=== PATIENT | male | born 1965 | race Caucasian/White ===

== ENCOUNTER 2017-01-20 15:43 | Emergency (ER) | payer BC, OTHER ==
[2017-01-20 16:24] VITALS: BP 157/94
--- NOTE | 2017-01-20 18:07 | RAD ---
Indication: Right foot pain 3 views of the right foot demonstrates degenerative changes of the first metatarsophalangeal joint. Inferior posterior calcaneal spur is noted. IMPRESSION: Degenerative changes of the first metatarsal phalangeal joint without evidence of fracture.
--- NOTE | 2017-01-20 18:11 | RAD ---
Indication: Right knee injury. 4 views of the right knee demonstrates no fracture. Degenerative changes of the patellofemoral joint is noted. IMPRESSION: Degenerative changes of the patellofemoral joint without evidence of fracture.
--- NOTE | 2017-01-20 20:03 | UC ---
Minor Trauma HPI - HPI Summary HPI Summary: SLIPPED ON ICE IN 01/09/17. HYPER EXTENDED KNEE ALSO PAIN IN RIGHT FOOT - History of Current Complaint Chief Complaint: UCLowerExtremity Stated Complaint: KNEE & FOOT PAIN,SWELLING Time Seen by Provider: 01/20/17 16:49 Hx Obtained From: Patient Onset/Duration: Sudden Onset, Lasting Weeks, Still Present Onset Of Pain: Post Accident Severity Initially: Moderate Severity Currently: Moderate Pain Intensity: 7 Pain Scale Used: 0-10 Numeric Mechanism Of Injury: Fall From A Standing Position Aggravating Factor(s): Ambulation, Movement, Weight Bearing Alleviating Factor(s): Compression, Elevation, Ice - Allergies/Home Medications Allergies/Adverse Reactions: Allergies Allergy/AdvReac Type Severity Reaction Status Date / Time Sulfa Drugs AdvReac GI Upset Verified 01/08/13 11:41 PMH/Surg Hx/FS Hx/Imm Hx Previously Healthy: Yes Endocrine History Of: Denies: Diabetes, Thyroid Disease Cardiovascular History Of: Reports: Hypertension Denies: Cardiac Disorders Respiratory History Of: Denies: COPD, Asthma GI/ History Of: Denies: Ulcer - Surgical History Surgical History: None Surgery Procedure, Year, and Place: appendix circa 1986 - Family History Known Family History: Negative: Other - NO JOINT LAXITY - Social History Occupation: Employed Full-time Lives: With Family Alcohol Use: Occasionally Substance Use Type: None Smoking Status (MU): Never Smoked Tobacco - Immunization History Most Recent Influenza Vaccination: denies Review of Systems Constitutional: Negative Skin: Negative Eyes: Negative ENT: Negative Respiratory: Negative Cardiovascular: Negative Gastrointestinal: Negative Genitourinary: Negative Motor: Negative Neurovascular: Negative Musculoskeletal: Arthralgia - RIGHT KNEE, Edema - RIGHT KNEE, Myalgia - RIGHT FOOT Neurological: Negative Psychological: Negative, Anxious All Other Systems Reviewed And Are Negative: Yes Physical Exam Triage Information Reviewed: Yes Appearance: Well-Appearing, No Pain Distress, Well-Nourished, Obese Vital Signs: Initial Vital Signs Temp 99.3 F 01/20/17 16:04 Pulse 95 01/20/17 16:04 Resp 18 01/20/17 16:04 BP 157/94 01/20/17 16:04 Pulse Ox 98 01/20/17 16:04 Vital Signs Reviewed: Yes Eye Exam: Normal ENT Exam: Normal ENT: Positive: Normal ENT inspection, Hearing grossly normal, Pharynx normal, TMs normal Dental Exam: Normal Neck exam: Normal Neck: Positive: Supple, Nontender Respiratory Exam: Normal Respiratory: Positive: Chest non-tender, Lungs clear, Normal breath sounds, No respiratory distress, No accessory muscle use Cardiovascular Exam: Normal Cardiovascular: Positive: RRR, No Murmur, Pulses Normal, Brisk Capillary Refill Abdominal Exam: Normal Abdomen Description: Positive: Nontender, No Organomegaly Musculoskeletal Exam: Normal Musculoskeletal: Positive: Strength Limited @ - RIGHT KNEE, ROM Limited @ - RIGHT KNEE, Edema @ - RIGHT KNEE Neurological Exam: Normal Psychological Exam: Normal Psychological: Positive: Normal Response To Family Skin Exam: Normal Minor Trauma Course/Dx - Differential Dx/Diagnosis Differential Diagnosis/HQI/PQRI: Sprain, Strain Provider Diagnoses: RIGHT KNEE SPRAIN. RIGHT FOOT SPRAIN Discharge - Discharge Plan Condition: Stable Disposition: HOME Patient Education Materials: Knee Sprain (ED), Foot Sprain (ED) Forms: *Work Release Referrals: [facility] [Outside] [facility] [Outside] Polo Nieves MD [Medical Doctor] - No Primary Care Phys,NOPCP [Primary Care Provider] -
== END 2017-01-20 18:54 | disposition home or self-care (01) ==
LOC: UCEAST 15:43
DX: S83.91XA Sprain of unspecified site of right knee, initial encounter (principal); S93.601A Unspecified sprain of right foot, initial encounter; W00.0XXA Fall on same level due to ice and snow, initial encounter; Y93.9 Activity, unspecified; Y92.9 Unspecified place or not applicable; E66.9 Obesity, unspecified; Z88.2 Allergy status to sulfonamides
CPT/HCPCS: 99212; G0463

== ENCOUNTER 2019-07-23 12:41 | Emergency (ER) | payer SELFPAY ==
[2019-07-23 13:16] VITALS: BP 158/95
--- NOTE | 2019-07-23 13:56 | UC ---
Knee Pain HPI - HPI Summary HPI Summary: 53 yo male presents with b/l knee pain. He tells me that for the past several years he has intermittent b/l knee pain. He states he has had XRs in the past and was told it was arthritis. 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 He rested and took naproxen with good relief. Today he feels able to return to work, but his employer will not let him return without a note allowing him to return. He has never seen Orthopedics in the past. Denies injury, numbness, tingling. - History of Current Complaint Chief Complaint: UCLowerExtremity Stated Complaint: KNEE PAIN Time Seen by Provider: 07/23/19 13:55 Hx Obtained From: Patient Severity Initially: Moderate Severity Currently: Mild Pain Intensity: 3 Pain Scale Used: 0-10 Numeric - Allergies/Home Medications Allergies/Adverse Reactions: Allergies Allergy/AdvReac Type Severity Reaction Status Date / Time Sulfa (Sulfonamide Allergy Intermediate upset gi Verified 07/23/19 13:16 Antibiotics) MS Sulfa Drugs [Sulfa Drugs] AdvReac GI Upset Verified 01/08/13 11:41 Home Medications: Home Medications NK [No Home Medications Reported] 07/23/19 [History Confirmed 07/23/19] PMH/Surg Hx/FS Hx/Imm Hx - Additional Past Medical History Additional PMH: None - Surgical History Surgical History: Yes Surgery Procedure, Year, and Place: appendix circa 1986 - Family History Known Family History: Negative: Other - NO JOINT LAXITY - Social History Occupation: Employed Full-time Lives: With Family Alcohol Use: Rare Substance Use Type: None Smoking Status (MU): Never Smoked Tobacco - Immunization History Most Recent Influenza Vaccination: denies Review of Systems All Other Systems Reviewed And Are Negative: No Constitutional: Positive: Negative Skin: Positive: Negative Respiratory: Positive: Negative Cardiovascular: Positive: Negative Neurovascular: Positive: Negative Musculoskeletal: Positive: Other: - Knee pain Neurological: Positive: Negative Psychological: Positive: Negative Physical Exam - Summary Physical Exam Summary: GENERAL: NAD. WDWN. No pain distress. SKIN: No rashes, sores, lesions, or open wounds. CHEST: No accessory muscle use. Breathing comfortably and in no distress. CV: Pulses intact popliteal, PT, and DP. Cap refill <2seconds MSK: B/L knees: NTTP FROM. Strength 5/5. No edema or obvious bony deformities. No patella apprehension. Negative Isabel, A/P drawer, Dickson, and varus/ valgus stress. NEURO: Alert. Sensations intact and symmetric B/L LEs PSYCH: Age appropriate behavior. Triage Information Reviewed: Yes Vital Signs: Initial Vital Signs Temp 98.0 F 07/23/19 13:12 Pulse 84 07/23/19 13:12 Resp 20 07/23/19 13:12 BP 158/95 07/23/19 13:12 Pulse Ox 99 07/23/19 13:12 Vital Signs Reviewed: Yes Knee Pain Course/Dx - Course Course Of Treatment: Discussed obtaining XRs today, but pt declined. Discussed referral to Orthopedics today, but pt declined. He states that he feels stable and comfortable enough to return to work and would like to go back at this time, therefore will write him for a note to return tomorrow. - Differential Dx/Diagnosis Provider Diagnosis: Bilateral knee pain Discharge ED - Sign-Out/Discharge Documenting (check all that apply): Patient Departure All imaging exams completed and their final reports reviewed: No Studies - Discharge Plan Condition: Stable Disposition: HOME Patient Education Materials: Osteoarthritis (ED), Knee Pain (ED) Forms: *Work Release Referrals: No Primary Care Phys,NOPCP [Primary Care Provider] - Additional Instructions: If you develop a fever, shortness of breath, chest pain, new or worsening symptoms - please call your PCP or go to the ED immediately. Your blood pressure was high at todays visit. Please see your primary provider within 4 weeks for recheck and re-evaluation. - Billing Disposition and Condition Condition: STABLE Disposition: Home - Attestation Statements Provider Attestation: I was available for consult. This patient was seen by the AUBREY. The patient was not presented to, seen by, or examined by me. -Jolene
== END 2019-07-23 14:17 | disposition home or self-care (01) ==
LOC: UCEAST 12:41
DX: M25.562 Pain in left knee (principal); M25.561 Pain in right knee; Z88.2 Allergy status to sulfonamides
CPT/HCPCS: 99211; G0463

== ENCOUNTER 2023-09-26 15:32 | Observation (INO) ==
[2023-09-26 16:18] LABS: ABS Basophils 0.1 10^3/uL (0.0-0.1); ABS Eosinophils 0.1 10^3/uL (0.0-0.5); ABS Lymphocytes 1.4 10^3/uL (1.0-4.8); ABS Monocytes 0.6 10^3/uL (0.0-1.1); ABS Neutrophils 9.3 10^3/uL (1.5-7.6); ABS Nucleated RBC 0.01 10^3/ul; Eosinophil % 0.5 %; Hematocrit 50.2 % (38-53); Hemoglobin 16.4 g/dL (13.2-16.3); Lymphocyte % 12.2 %; Mean Corpuscular Hemoglobin 32.4 pg (27-33); Mean Corpuscular Hgb Conc 32.8 g/dL (31-36); Mean Corpuscular Volume 98.9 fL (80-97); Mean Platelet Volume 9.5 fL (7.5-11.2); Nucleated Red Blood Cells % 0.1 %/100WBC (0.0-0.8); Platelet Count 215 10^3/uL (150-450); Red Blood Count 5.07 10^6/uL (4.06-5.63); Red Cell Distribution Width 18.2 % (12-17); White Blood Count 11.4 10^3/uL (3.6-10.2)
[2023-09-26 16:48] LABS: Albumin 3.9 g/dL (3.2-5.2); Albumin/Globulin Ratio 1.1 (1-3); C Reactive Protein 22.58 mg/L (<8.01); Calcium 9.1 mg/dL (8.6-10.3); Creatinine, Serum 1.64 mg/dL (0.67-1.17); Globulin 3.4 g/dL (2-4); Potassium 3.9 mmol/L (3.5-5.0); Total Bilirubin 1.9 mg/dL (0.2-1.0); Total Protein 7.3 g/dL (6.4-8.9); eGFR CKD-EPI 48.2 (>60)
[2023-09-26] MEDS ORDERED: Iodixanol (CONTRAST) 320 MG/ML 100 ML SDV IV ONE (17:58)
[2023-09-26 18:34] LABS: High Sensitivity Troponin 1 Hr 902 pg/mL (<20)
[2023-09-26] MEDS ORDERED: Furosemide 40 mg/4 ml IV VIAL IV ONE (18:46)
[2023-09-26 20:18] LABS: INR 1.39 (0.83-1.13)
[2023-09-26 21:46] LABS: HDL Cholesterol 35.5 mg/dL
[2023-09-27] MEDS ORDERED: Furosemide 40 mg/4 ml IV VIAL IV ONE (02:05)
[2023-09-27 07:42] LABS: Calcium 8.5 mg/dL (8.6-10.3); Creatinine, Serum 1.74 mg/dL (0.67-1.17); Magnesium 1.9 mg/dL (1.9-2.7); Potassium 4.2 mmol/L (3.5-5.0); eGFR CKD-EPI 44.9 (>60)
[2023-09-27] MEDS: Aspirin EC 81 mg TAB.EC (enteric coated) PO SCH ×2 (07:56→08:06)
[2023-09-27 08:07] LABS: Ferritin 35.4 ng/mL (24-336)
[2023-09-27 08:17] LABS: .Transferrin 264 mg/dL (203-362); Total Iron Binding Capacity 370 mcg/dL (250-450)
[2023-09-27] MEDS ORDERED: Warfarin per PHARMACY **NOTE FOLLOW UP SCH (11:00)
[2023-09-27] MEDS ORDERED: Sulfur Hexaflouride MICROSPHR 25 MG VIAL ONE (11:21)
[2023-09-27] MEDS ORDERED: Warfarin DAILY REMINDER **NOTE FOLLOW UP SCH (17:00)
[2023-09-27 17:26] LABS: % Iron Saturation 10 % (15-55); .Transferrin 254 mg/dL (203-362); Iron 36 ug/dL (50-212); Total Iron Binding Capacity 356 mcg/dL (250-450); Unsaturated Iron Binding 320 ug/dL
[2023-09-27 23:14] VITALS: BP 113/78
== END 2023-09-28 00:07 | disposition short-term general hospital (02) ==
LOC: ED 15:32 → EDHOLD 15:32 → SUATTDRO 20:04 → EDHOLD 09-27 09:58
PROVIDERS: ADMIT Student in an Organized Health Care Education/Training Program; ATTEND Internal Medicine